=== PATIENT | female | born 1955 | race Caucasian/White ===

== ENCOUNTER → 2023-11-22 13:14 | Outpatient (REF) | payer MEDICARE, OTHER, SELFPAY | LOC: WDC 13:14 | PROVIDERS: ATTENDING PHYSICIAN Obstetrics & Gynecology Gynecology; FAMILY PHYSICIAN Family Medicine | DX: Z12.31 Encounter for screening mammogram for malignant neoplasm of breast (principal); Z78.0 Asymptomatic menopausal state | CPT/HCPCS: 77063; 77067; 77080 ==

== ENCOUNTER 2024-03-26 06:29 | Day surgery (SDC) | payer MEDICARE, OTHER, SELFPAY ==
[2024-03-12 13:10] VITALS: BMI 23.6
--- NOTE | 2024-03-12 15:50 | PTCARENOTE ---
Abnormal ECG 03/12/[address] Lockett, no further intervention.
[2024-03-26] VITALS (9 sets, daily range): BP systolic 108–136; BP diastolic 73–90; BMI 23.6
--- NOTE | 2024-03-26 07:51 | HP.FOC2 ---
Focused History & Physical
Chief Complaint
HPI:
Chief Complaint: Left inguinal hernia
HPI / Indication for Planned Procedure: Patient is a 68-year-old female recently seen in outpatient surgical evaluation secondary to painful swelling in the left inguinal region. This past summer she had an upper respiratory illness with coughing
at which point she noted painful swelling and protrusion of the left inguinal region. Hernia remains persistent but no longer painful or uncomfortable. Visible swelling particularly after standing. She has been avoiding more exertional activities
and heavy lifting. No associated GI or symptoms.
Relevant Past Medical History: Other (Hypercholesterolemia, osteopenia, hemochromatosis heterozygote, Gilbrt's syndrome,)
Relevant Social History: Negative
Relevant Family History: Negative
Relevant Past Surgical History: Positive for (D&C)
Review of Systems
Review of Pertinent Systems: All Systems Negative
Medication
See Medication form for detailed medications: Yes
Medication List (including Herbals & OTC):
acetaminophen 325 mg tablet 650 mg PO Q4H PRN pain 03/19/24
cholecalciferol (vitamin D3) 25 mcg (1,000 unit) tablet (Vitamin D3) 25 mcg PO DAILY 03/19/24
fluticasone propionate 50 mcg/actuation nasal spray,suspension 2 spray intranasal DAILY 03/19/24
methylcellulose (laxative) 500 mg tablet 750 mg PO AC 03/19/24
simvastatin 40 mg tablet 40 mg PO QPM 03/19/24
Medications Reviewed: Yes
Allergies and Reactions
Patient has Allergies: Yes
Noted Allergies and Reactions:
Allergy/AdvReac Type Severity Reaction Status Date / Time
amoxicillin Allergy Hives Verified 03/19/24 08:16
Pertinent Physical Exam
All Other Systems: Negative
Head/Neck: Normal
Lungs: Normal
Heart: Normal
Abdomen: Other (Reducible left inguinal hernia)
Extremities: Normal
Neurological: Normal
Diagnosis / Assessment
68-year-old female presenting for scheduled operative correction of symptomatic left inguinal hernia
Plan / Procedure
Robotic assisted laparoscopic repair left inguinal hernia with mesh
Anesthesia/Sedation to be done by Anesthesia Provider: Yes
--- NOTE | 2024-03-26 07:53 | W.SUR.PREOP ---
Pre-Operative Surgical Note
-
I have examined this patient prior to the performance of the scheduled procedure.
The patient's condition is unchanged from the time of the current History and
Physical and the patient is able to undergo the scheduled procedure.
[2024-03-26] MEDS: TYLENOL 1000 MG PO (11:55)
--- NOTE | 2024-03-26 15:54 | W.IMMPOSTOP ---
Addendum entered and electronically signed by Robby Owens MD 03/26/24 16:02:
#[id number]
Original Note:
Surgical Immed Post Op Note
-
Primary Surgeon: Robby Owens MD
Assisting Surgeon: Glenn Sauer MD PGY1
Pre-op Diagnosis: Left inguinal hernia
Post-op Diagnosis: Left inguinal hernia, indirect
Procedure Performed: Robotic assisted laparoscopic MARKIE repair left inguinal hernia with mesh; 3D max large mid weight
Anesthesia Type: GETA +0.25% Marcaine
Specimen / Cultures: None
Estimated Blood Loss: 10 mL
Complications: None immediate
Operative Findings: Left indirect inguinal hernia with omental adhesions. Hernia sac and contents reduced. Sac discarded and excised. 3D max large mid weight mesh repair secured to Elder's ligament with interrupted 2-0 Vicryl.
[2024-03-26 18:13] LABS: Hepatitis B Surface Antigen Negative (Negative)
[2024-03-26 18:31] LABS: Hepatitis B Surface Antibody Negative; Hepatitis C Antibody Negative (Negative)
[2024-03-26 19:16] LABS: HIV Combo Negative (Negative)
== END 2024-03-26 18:01 | disposition home or self-care (01) ==
LOC: SDS 06:29
PROVIDERS: ATTENDING PHYSICIAN Surgery; FAMILY PHYSICIAN Family Medicine
PROC: 8E0W4CZ Robotic Assisted Procedure of Trunk Region, Percutaneous Endoscopic Approach (ICD-10-PCS; 2024-03-26)
PROC: 0YU64JZ Supplement Left Inguinal Region with Synthetic Substitute, Percutaneous Endoscopic Approach (ICD-10-PCS; 2024-03-26)
DX: K40.90 Unilateral inguinal hernia, without obstruction or gangrene, not specified as recurrent (principal); K66.0 Peritoneal adhesions (postprocedural) (postinfection); Z88.0 Allergy status to penicillin
CPT/HCPCS: 49650; 86706; 86803; 87340; 87389; C1781

== ENCOUNTER → 2024-10-09 09:35 | Outpatient (REF) | payer MEDICARE, OTHER, SELFPAY | LOC: RCS 09:35 | PROVIDERS: ATTENDING PHYSICIAN Family Medicine | DX: R94.31 Abnormal electrocardiogram [ECG] [EKG] (principal) | CPT/HCPCS: 93017; 93350 ==

== ENCOUNTER → 2024-11-22 11:57 | Outpatient (REF) | payer MEDICARE, OTHER, SELFPAY | LOC: WDC 11:57 | PROVIDERS: ATTENDING PHYSICIAN Obstetrics & Gynecology Gynecology; FAMILY PHYSICIAN Family Medicine | DX: Z12.31 Encounter for screening mammogram for malignant neoplasm of breast (principal) | CPT/HCPCS: 77063; 77067 ==

== ENCOUNTER → 2024-12-31 12:48 | Outpatient (REF) | payer MEDICARE, OTHER, SELFPAY | LOC: WDC 12:48 | PROVIDERS: ATTENDING PHYSICIAN Obstetrics & Gynecology Gynecology; FAMILY PHYSICIAN Family Medicine | DX: R92.2 Inconclusive mammogram (principal) | CPT/HCPCS: 76641 ==